=== PATIENT | male | born 1960 | race Asian ===

== ENCOUNTER 2019-05-15 12:59 | Emergency (ER) | payer OTHER ==
[~2019-05-15] VITALS: Ht 172.7 cm; Wt 80.7 kg
[2019-05-15 13:00] VITALS: BP_SYST 151
--- NOTE | 2019-05-15 13:00 | NUR ---
Patient to ER bed 7 to gown for evaluation. Side rails up. Assumed care.
--- NOTE | 2019-05-15 13:05 | NUR ---
Patient arrived via [facility] for c/c of animal bite. 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 Wound has puncture and abrasion to right wrist. 3-4/10 pain noted. Bleeding is controlled. Patients last tetanus was approximately 10 years ago. Will continue to follow up and monitor.
--- NOTE | 2019-05-15 13:06 | NUR ---
ER at bedside examining patient.
[2019-05-15] MEDS ORDERED: DIPH-TET-PERTUS Vaccine 0.5 ML VIAL (ADACEL) I.M. ONE (13:15)
--- NOTE | 2019-05-15 13:20 | NUR ---
RFA dog bite cleaned and dressed. Pt tolerated well.
[2019-05-15] MEDS ORDERED: ACETAMINOPHEN/CODEINE 300 MG-30 MG TABLET PO ONE (13:30)
[2019-05-15 13:33] VITALS: BP_SYST 151
--- NOTE | 2019-05-15 13:33 | NUR ---
Patient given written and verbal discharge instructions and verbalizes understanding. ER MD discussed with patient the results and treatment provided. Patient in stable condition. ID arm band removed. Rx of Tylenol w/ Codeine, Augmentin, and Neosporin given. Patient educated on pain management and to follow up with PMD. Pain Scale 0/10. Opportunity for questions provided and answered. Medication side effect fact sheet provided.
[2019-05-15] MEDS ORDERED: BACITRACIN 1 GM OINT TP ONE (13:36)
== END 2019-05-15 13:33 | disposition home or self-care (01) ==
LOC: SED 12:59
DX: S61.551A Open bite of right wrist, initial encounter (principal); I10 Essential (primary) hypertension; E11.9 Type 2 diabetes mellitus without complications; W54.0XXA Bitten by dog, initial encounter; Y93.89 Activity, other specified; Y92.89 Other specified places as the place of occurrence of the external cause; Y99.8 Other external cause status
CPT/HCPCS: 90715; 99283